=== PATIENT | male | born 1955 | race Caucasian/White ===

== ENCOUNTER 2023-10-14 16:59 | Emergency (ER) | payer OTHER, SELFPAY ==
[2023-10-14 17:09] VITALS: BP 134/88
[2023-10-14 17:41] LABS: % Basophils 0.9 % (0-2); % Eosinophils 0.3 % (0-6); % Immature Granulocytes 0.2 % (0-0.5); % Lymphocytes 14.3 % (20.5-51.1); % Monocytes 12.7 % (1.7-9.3); % Neutrophils 71.6 % (42.2-75.2); Absolute Basophils 0.1 10^3/uL (0-0.2); Absolute Lymphocytes 0.9 10^3/uL (1.2-3.4); Absolute Monocytes 0.8 10^3/uL (0.1-0.6); Absolute Neutrophils 4.7 10^3/uL (1.4-6.5); Hematocrit 45.3 % (39.0-52.0); Hemoglobin 15.4 g/dL (13.0-18.0); Mean Corpuscular Hgb 30.3 pg (27.0-31.0); Mean Platelet Volume 12.3 fL (7.4-10.4); Nucleated Red Blood Cells % 0 % (-); Platelet Count 201 10^3/uL (130-400); Red Blood Cell Count 5.09 10^6/uL (4.70-6.10); Red Cell Dist. Width 12.6 % (11.5-14.5); White Blood Cell Count 6.6 10^3/uL (4.8-10.8)
[2023-10-14 17:55] LABS: NT-proBNP 33.6 pg/ml
[2023-10-14 17:59] LABS: ALT (SGPT) 30 U/L (0-50); AST (SGOT) 38 U/L (17-59); Albumin 4.4 g/dl (3.5-5.0); Alkaline Phosphatase 90 U/L (38-126); Blood Urea Nitrogen 13 mg/dl (9-20); Calcium 9.5 mg/dl (8.4-10.2); Carbon Dioxide 29 mmol/L (22-30); Chloride 99 mmol/L (98-107); Glucose 100 mg/dl (70-99); Potassium 4.3 mmol/L (3.5-5.1); Sodium 136 mmol/L (135-145); Total Bilirubin 2.4 mg/dl (0.2-1.3); Total Protein 7.4 g/dl (6.3-8.2); eGFR > 60.00
[2023-10-14 21:30] VITALS: BMI 24.0
[2023-10-14 21:51] VITALS: BP 137/82
--- NOTE | 2023-10-14 22:28 | ED.GENMED ---
History of Present Illness
General
Chief Complaint: Weight Changes
Source: patient
Exam Limitations: none
Time Seen by Provider: 10/14/23 21:03
Nursing documentation reviewed up to this point in time: agreed with
Travel History
Have you had any contact with someone who has COVID-19?: No
Do you have any symptoms of coronavirus? Fever > 100 degrees, chills, cough, shortness of breath, sore throat, loss of taste or smell, muscle aches, or headache?: No
History of Present Illness
History of Present Illness:
Patient is a 68-year-old male who presents to the emergency department complaining of a 15 pound weight gain since June. Patient has continued to exercise both doing cardio and weights. Patient's diet is unchanged. Patient is actually omitted
to meals a week. Patient admits to not sleeping well since his father approximately 5 to 6 months ago. Today the patient awoke with a headache and felt nauseous. Patient took Tylenol now feels fine. Patient denies nasal congestion,
sore throat or cough patient denies fever or chills. Patient denies any visual or speech difficulties. Patient has stress test in May 27 which was unremarkable. Patient denies eating large amount hide this. Patient eats mostly fish, fruits
and vegetables. Patient does not smoke or drink alcohol except for an occasional glass of white wine. Patient denies any hair or skin changes. Patient denies chest pain, shortness of breath or palpitations. Patient denies any GI or symptoms.
Past History
Past History
ED Past Medical History: Psychiatric
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
Social History
Tobacco: Non-smoker
Alcohol: Occasional
Drug: None
Living: with family
Review of Systems
Review of Systems
All Other Systems: ROS reviewed and negative except as documented in HPI and ROS
Constitutional: Reports weight gain and sleep disturbance; Denies fever, fatigue or chills
EENT: Reports no symptoms
Respiratory: Reports no symptoms
Cardiac: Reports no symptoms
ABD/GI: Reports no symptoms
: Reports no symptoms
Musculoskeletal: Reports no symptoms
Skin: Reports no symptoms
Neurological: Reports no symptoms
Endocrine: Denies temp intolerance
Hematologic/Lymphatic: Reports no symptoms
Phy Exam
Physical Exam
Physical Exam:
Physical Exam
General: No apparent distress, alert and appropriate, well nourished, well hydrated
HENT: Normocephalic, supple with no lymphadenopathy, no thyromegaly
Eyes: Clear sclera, conjuctiva without injection
Heart: Regular rhythm and rate. No S3, S4. No murmur. No NVD, bruit
Lungs: No respiratory distress, no stridor, lung sounds clear and equal bilaterally, chest wall symmetrical and nontender
Abdomen: Soft, nontender, no organomegaly, no CVA tenderness, BS good
Neuro: Alert and oriented x 3, CN II - XII intact, no motor focality, no cerebellar dysfunction
Skin: no rash
Psychiatric: well kept. interactive and cooperative
Extremities: No edema, cyanosis, tenderness, Good and equal peripheral pulses.
Scores
Heart Failure Risk
Heart Failure Risk Score: Not Applicable
Course
Orders/Labs/Results
Orders:
Orders
10/14/23 17:15
BNP [NT-proBNP] Urgent
Complete Blood Count/With Diff Urgent
Comprehensive Metabolic Panel Urgent
TSH Reflex To Free T4 Urgent
Comment: ADD ON
10/14/23 21:03
Add On- LAB Urgent
Tests Added?: TSH reflex T4
10/14/23 21:23
Electrocardiogram (*1) Urgent
Reason for Study: Fatigue / Weakness
EKG- Treatment ONCE
Abnormal Lab Results
10/14/23
17:15
MPV 12.3 H fL
(7.4-10.4)
Absolute Lymphs (auto) 0.9 L 10^3/uL
(1.2-3.4)
Absolute Monos (auto) 0.8 H 10^3/uL
(0.1-0.6)
Lymphocytes % 14.3 L %
(20.5-51.1)
Monocytes % 12.7 H %
(1.7-9.3)
Glucose 100 H mg/dl
(70-99)
Total Bilirubin 2.4 H mg/dl
(0.2-1.3)
10/14/23 17:15
10/14/23 17:15
Vital Signs
Initial and Last Documented VS:
Initial Vital Signs
Temp Pulse Resp BP Pulse Ox
98.4 F 87 18 134/88 99
10/14/23 17:09 10/14/23 17:09 10/14/23 17:09 10/14/23 17:09 10/14/23 17:09
Last Documented Vital Signs
Temp Pulse Resp BP Pulse Ox
98.4 F 71 16 137/82 100
10/14/23 17:09 10/14/23 21:51 10/14/23 21:51 10/14/23 21:51 10/14/23 21:51
*Radiology
Radiology exam reviewed: other (na)
*Pulse Oximetry
Patient hypoxic: no
*EKG
Interpreted by ED Provider?: Yes
EKG Intrepretation Date: 10/14/23
EKG Intrepretation Time: 22:32
Interpretation: normal
Comparison EKG: no comparison EKG present
Heart Rate: 68
Rate: normal
Rhythm: sinus
[place]: normal axis
Interval: normal interval
QRS Pattern: normal QRS
Ischemia: no ischemia
*Adventure Guide Interpretation
Rate: Adventure Guide- N/A
*Critical Care Note
Total Time (30-74mins, 75-104mins- exclusive of procedures): Not Applicable
Update Note
Update Note:
Patient's workup is unremarkable. Patient will be discharged to follow-up with his family doctor.
ED Attending Note
-
Portions of this chart may have been created with voice recognition software.� Occasional wrong word or��sound alike� substitutions may have occurred due to the inherent limitations of voice recognition software.
Discharge Plan
Departure
Patient Disposition: Home (Routine Discharge)
Date of Disposition: 10/14/23
Time of Disposition: 23:04
Patient with high blood pressure during this ER visit?: No
Condition: Good
Covid-19: Not Applicable
Discharge Problem:
Weight gain
Instructions: Weight Loss Tips, Weight Loss Diet, How to Keep Track of Your Weight
Prescriptions:
No Action
riboflavin (vitamin B2) 100 mg Tablet
100 mg PO DAILY
calcium carbonate-vitamin D3 [Calcium 600 with Vitamin D3] 600 mg-5 mcg (200 unit) Tablet
1 tab PO BID
carboxymethylcellulose sodium [Refresh Tears] 0.5 % Drops
1 drp OPHTHALMIC (EYE) DAILY
doxycycline hyclate 20 mg Tablet
40 mg PO DAILY
Multivitamin 50 Plus Tablet
1 tab PO DAILY
escitalopram oxalate 10 mg Tablet
10 mg PO DAILY
Arabic Ginseng 350 mg Capsule
350 mg PO DAILY
betaine HCl 300 mg Tablet
1 mg PO DAILY
azelaic acid 15 % Foam
1 applic TOPICAL BID
turmeric 400 mg Capsule
See Rx Instructions .ROUTE .COMPLEX
Rx Instructions:
1,000 mg orally every other day
Neuriva Original 100-100 mg Capsule
1 cap PO DAILY
[place] 7
1,000 mg PO DAILY
Referrals:
UNKNOWN - PT DOES,NOT KNOW [Family Provider] -
Activity Restrictions/Additional Instructions:
Continue present medications and follow-up with your physician as scheduled.
Interventions
Interventions:
*Risk Screen - Suicide Last Done: 10/14/23 17:09
*General Assessment Last Done: 10/14/23 17:09
*Neglect/Abuse Screening Last Done: 10/14/23 17:09
ED- Fall Risk Assessment Last Done: 10/14/23 21:30
*ED COVID-19 Vaccine History Last Done: 10/14/23 17:09
[2023-10-14 23:00] LABS: TSH Reflex To Free T4 2.19 uIU/ml (0.47-4.68)
[2023-10-14 23:15] VITALS: BP 125/81
== END 2023-10-14 23:15 | disposition home or self-care (01) ==
LOC: EMR 16:59
PROVIDERS: EMERGENCY PHYSICIAN Emergency Medicine
DX: R63.5 Abnormal weight gain (principal); Z68.24 Body mass index [BMI] 24.0-24.9, adult
CPT/HCPCS: 99284; 80053; 83880; 84443; 85025; 93005

== ENCOUNTER → 2024-08-19 13:18 | Outpatient (REF) | payer SELFPAY ==
--- NOTE | 2024-09-02 10:45 | OID.L.PAT ---
Pulmonary Nodule Pat Letter
- -
09/02/24
MERARY FRITZ
[address]
[place] [id number]
Milagro REAGAN,
A pulmonary nodule was seen on an imaging study done by [facility]. This was reviewed by the [facility] Pulmonary Nodule Advisory Board and the following recommendation was made:
Recommendation: Follow up CT Chest in 6 months
If you have any questions, please do not hesitate to contact your primary care physician. If you are in need of a Physician, you can go to [email or web address] and click on 'Find a Provider'. Type 'Family Medicine' in the search.
Oncology Nurse Navigator
[facility]
[phone]
--- NOTE | 2024-09-02 10:46 | OID.L.REC ---
Pulmonary Nodule Follow Up
- Recommendation
09/02/24
Pulmonary Nodule Review Recommendations
Your patient, MERARY FRITZ, had a pulmonary nodule seen on an imaging study done on 08/19/24 in the [facility] Radiology Department.
This was reviewed by the [facility] Pulmonary Nodule Advisory Board and the following recommendation was made:
Recommendation: Follow up CT Chest in 6 months
If you have any questions please do not hesitate to contact us.
Sincerely,
Oncology Nurse Navigator
[facility]
[phone]
== END ==
LOC: RAD 13:18
DX: Z13.6 Encounter for screening for cardiovascular disorders (principal)
CPT/HCPCS: 75571